=== PATIENT | male | born 1985 | race American Indian/Alaskan Native ===

== ENCOUNTER 2016-11-08 10:25 | Emergency (ER) | payer SELFPAY ==
[2016-11-08 10:31] VITALS: BP 126/71
--- NOTE | 2016-11-08 13:24 | Emergency Department Report ---
- General Chief complaint: Earache Stated complaint: LT EAR INFECTION Source: patient Mode of arrival: Ambulatory Limitations: No Limitations - History of Present Illness Initial comments: 31-year-old -[place] male comes in complaining of left ear pain for a week. Patient reports that he's had trouble in the past similar to this where he would have drainage from the ear. Patient reports that the pain is 8 out of 10 and has not taken any [id number] pain medication. Patient reports no known drug allergies habits no past medical history and currently takes no medication. MD complaint: abscess/boil -: week(s) (1) Quality: aching Consistency: intermittent Improves with: none Worsens with: none Associated symptoms: denies other symptoms - Related Data Previous Rx's Medication Instructions Recorded Last Taken Type Amoxicillin [Amoxicillin TAB] 875 mg PO BID #20 tablet 11/08/16 Unknown Rx Naproxen [Naprosyn] 500 mg PO BID #20 tablet 11/08/16 Unknown Rx Ofloxacin 0.3% [Ocuflox] 3 drops OP QDAY #1 bottle 11/08/16 Unknown Rx Allergies Allergy/AdvReac Type Severity Reaction Status Date / Time No Known Allergies Allergy Verified 11/08/16 13:28 Abscess Boil HPI - HPI Chief Complaint: Earache Stated Complaint: LT EAR INFECTION Home Medications: Previous Rx's Medication Instructions Recorded Last Taken Type Amoxicillin [Amoxicillin TAB] 875 mg PO BID #20 tablet 11/08/16 Unknown Rx Naproxen [Naprosyn] 500 mg PO BID #20 tablet 11/08/16 Unknown Rx Ofloxacin 0.3% [Ocuflox] 3 drops OP QDAY #1 bottle 11/08/16 Unknown Rx Allergies/Adverse Reactions: Allergies Allergy/AdvReac Type Severity Reaction Status Date / Time No Known Allergies Allergy Verified 11/08/16 13:28 ED Review of Systems ROS: Stated complaint: LT EAR INFECTION Other details as noted in HPI ED Past Medical Hx - Past Medical History Previous Medical History?: Yes Additional medical history: Boil left ear - Surgical History Past Surgical History?: No - Social History Smoking Status: Former Smoker Substance Use Type: Alcohol, Non Opiate Pain - Medications Home Medications: Home Medications Medication Instructions Recorded Confirmed Last Taken Type Amoxicillin [Amoxicillin TAB] 875 mg PO BID #20 tablet 11/08/16 Unknown Rx Naproxen [Naprosyn] 500 mg PO BID #20 tablet 11/08/16 Unknown Rx Ofloxacin 0.3% [Ocuflox] 3 drops OP QDAY #1 bottle 11/08/16 Unknown Rx ED Physical Exam - General Limitations: No Limitations General appearance: alert - Head Head exam: Present: atraumatic, normocephalic - Eye Eye exam: Present: normal appearance - ENT ENT exam: Present: mucous membranes moist - Expanded ENT Exam Expanded TM/Canal exam: Bulging: Left TM (half a centimeter fluctuant abscess obscured their ear orifice), Loss of Landmarks: Left TM ED Course Vital Signs 11/08/16 10:28 Temperature 98.3 F Pulse Rate 68 Respiratory 20 Rate Blood Pressure 126/71 O2 Sat by Pulse 98 Oximetry - I & D Left Ear Blade Size: 19 gauge needle I & D Procedure: betadine prep, sterile drapes applied Progress: Patient tolerated procedure well. Critical care attestation.: If time is entered above; I have spent that time in minutes in the direct care of this critically ill patient, excluding procedure time. ED Disposition Clinical Impression: Abscess Disposition: DISCHARGED TO HOME OR SELFCARE Is pt being admited?: No Does the pt Need Aspirin: No Condition: Stable Instructions: Abscess Incision and Drainage (ED), Abscess (ED) Additional Instructions: Take antibiotics as prescribed. Follow up with the ear nose and throat provider. Please return to the emergency room on for reevaluation of abscess in the left ear. Prescriptions: Amoxicillin [Amoxicillin TAB] 875 mg PO BID #20 tablet Naproxen [Naprosyn] 500 mg PO BID #20 tablet Ofloxacin 0.3% [Ocuflox] 3 drops OP QDAY #1 bottle Referrals: PRIMARY CARE, [Primary Care Provider] - 3-5 Days KALYAN BONNER MD [Staff Physician] - 3-5 Days Forms: Work/School Release Form(ED)
[2016-11-08] MEDS ORDERED: NAPROSYN PO ONE (14:00)
== END 2016-11-08 13:33 | disposition home or self-care (01) ==
LOC: ED 10:25
DX: H66.42 Suppurative otitis media, unspecified, left ear (principal); Z87.891 Personal history of nicotine dependence